=== PATIENT | female | born 1975 | race Caucasian/White ===

== ENCOUNTER → 2018-03-29 14:13 | Outpatient (CLI) | payer OTHER, SELFPAY | PROVIDERS: Family Provider Physician Assistant; PCP Physician Assistant; Visit Provider Orthopaedic Surgery | DX: M54.16 Radiculopathy, lumbar region (principal) | CPT/HCPCS: 72114 ==

== ENCOUNTER 2018-05-06 12:30 | Outpatient (RCR) | payer OTHER, SELFPAY ==
--- NOTE | 2018-05-06 13:25 | HP.PTREVAL ---
Luzmaria Soto, It has been my pleasure to treat MOISE GALLEGOS over the last 5 visits for LBP. Please see the progress note below for an update on the physical therapy plan of care! Subjective: No sig changes at this time. Objective/Function: LBP has remained relatively unchanged. Pt reports her R LE radiculopathy is also unchanged. Pt has not made significant improvements at this time Plan Plan: Hold Rx at this time, RTD. Pt to call with Plan after visit Goals Goal 1:: Decrease LBP x 50% to aid with sleep Goal Time Frame: 2-4 Weeks Goal Progress: Not Progressing Goal 2:: Increase L/S ext ROM x 1 grade to aid with decreasing pain Goal Time Frame: 2-4 Weeks Goal Progress: Not Progressing Goal 3:: Decrease the frequency and intensity of LE radiculopathy x 1 grade toa id with ambulation Goal Time Frame: 2-4 Weeks Goal Progress: Not Progressing Goal 4:: I with HEP Goal Time Frame: 2-4 Weeks Goal Progress: Progressing Anticipated Interventions Patient/Client Instruction: Educate patient on: Condition, Plan of Care For the Purpose of:: To improve self management Therapeutic Exercise to Include: Strength training, Endurance training, Body mechanics, Postural training, Dynamic Lumbar Stabilization, Luz Exercises For the Purpose of:: To decrease pain, To increase ROM, To improve muscle performance and motor function Please do not hesitate to contact me at [phone] by phone or if you have questions or concerns regarding this new plan of care! Sincerely, Darinel Valero, PT,
--- NOTE | 2018-05-06 13:37 | HP.PTREVAL_ITS ---
Luzmaria Soto, It has been my pleasure to treat MOISE GALLEGOS over the last 5 visits for LBP. Please see the progress note below for an update on the physical therapy plan of care! Subjective: No sig changes at this time. Objective/Function: LBP has remained relatively unchanged. Pt reports her R LE radiculopathy is also unchanged. Pt has not made significant improvements at this time Plan Plan: Hold Rx at this time, RTD. Pt to call with Plan after visit Goals Goal 1:: Decrease LBP x 50% to aid with sleep Goal Time Frame: 2-4 Weeks Goal Progress: Not Progressing Goal 2:: Increase L/S ext ROM x 1 grade to aid with decreasing pain Goal Time Frame: 2-4 Weeks Goal Progress: Not Progressing Goal 3:: Decrease the frequency and intensity of LE radiculopathy x 1 grade toa id with ambulation Goal Time Frame: 2-4 Weeks Goal Progress: Not Progressing Goal 4:: I with HEP Goal Time Frame: 2-4 Weeks Goal Progress: Progressing Anticipated Interventions Patient/Client Instruction: Educate patient on: Condition, Plan of Care For the Purpose of:: To improve self management Therapeutic Exercise to Include: Strength training, Endurance training, Body mechanics, Postural training, Dynamic Lumbar Stabilization, Luz Exercises For the Purpose of:: To decrease pain, To increase ROM, To improve muscle performance and motor function Please do not hesitate to contact me at [phone] by phone or Fax: if you have questions or concerns regarding this new plan of care! Sincerely, Darinel Valero, PT,
--- NOTE | 2018-05-06 13:38 | HP.PTEVAL_ITS ---
Patient's Visit Information MOISE GALLEGOS is a 42 year old F referred to Physical Therapy by Luzmaria Soto with a diagnosis of LBP. Date of Evaluation: 03/31/18 Physical Therapist: Darinel Valero, PT, - Visit Plan Frequency: 2x /Week Duration: 2 Weeks Plan: Hold Rx at this time, RTD. Pt to call with Plan after visit - Subjective Subjective: Pt reports she has had LBP for greater than one year. Pt notes she has had Xrays and MRI which revealed tendonitis and bulging discs. Pt reports she has had PT in the past, as well as injections from Dr. Wade, but no permanent improvements at this time. Pt reports sitting, cleaning her house, prolonged standing, and sleeping all increase pain. Pt reports she can barely stand up after lying down secondary to pain. Pt reports the pain is worst on her R side, and extends down her R LE to mid femur region. Pt reports changing positions and taking pain meds helps to decrease her pain. 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 Pt reports her LBP at rest is 7/10. 9/10 at worst (cleaning her house) - Pain LBP Pain Intensity (Out of 10): 7 Pain Intensity Range: 9 - Objective Neuro: B LE sensation is WNL to light touch. B pat tendon reflex= 2/3. MMT: B LE's are grossly 5/5 throughout. L/S ROM: Pt is mildly limited in all planes. Repeated movements: RFIS 10x3 increases pain. ASH 10x3 decreases pain. REIL decreased pain as well. - Goals Goal 1:: Decrease LBP x 50% to aid with sleep Goal Time Frame: 2-4 Weeks Goal 2:: Increase L/S ext ROM x 1 grade to aid with decreasing pain Goal Time Frame: 2-4 Weeks Goal 3:: Decrease the frequency and intensity of LE radiculopathy x 1 grade toa id with ambulation Goal Time Frame: 2-4 Weeks Goal 4:: I with HEP Goal Time Frame: 2-4 Weeks - Rehabilitation Potential Physical Therapy Diagnosis: LBP, decreased L/S ROM, and intermittent R LE radiculopathy secondary to L/S disc derrangement Rehabilitation Potential: Good - Anticipated Interventions Patient/Client Instruction: Educate patient on: Condition, Plan of Care For the Purpose of:: To improve self management Therapeutic Exercise to Include: Strength training, Endurance training, Body mechanics, Postural training, Dynamic Lumbar Stabilization, Luz Exercises For the Purpose of:: To decrease pain, To increase ROM, To improve muscle performance and motor function Thank you for the opportunity to evaluate your patient. For Medicare and Medicare HMO plans, please review the plan of care and approve it. It will need to be FAXED BACK to us at [phone] for Medicare purposes. Please let me know if there are questions or concerns regarding this plan of care. Physician Signature: Date:
--- NOTE | 2018-06-30 18:13 | HP.PT.NRP ---
HP - Discharge Summary (1) - Patient Information MOISE GALLEGOS was seen in my office for initial evaluation on 03/31/18. The following Plan of Care was established for this patient: Initial Frequency: 2x /Week Initial Duration: 2 Weeks - Anticipated Interventions Patient/Client Instruction: Educate patient on: Condition, Plan of Care For the Purpose of:: To improve self management Therapeutic Exercise to Include: Strength training, Endurance training, Body mechanics, Postural training, Dynamic Lumbar Stabilization, Luz Exercises For the Purpose of:: To decrease pain, To increase ROM, To improve muscle performance and motor function This patient was last seen in our office . Pertinent comments regarding their Physical therapy will appear below: Pt was treated for 5 PT visits through the date of 05/06/18 for her LBP. Pt reported no improvements at that time. I discussed with her that we would hold PT until after her Dr. visit. Pt has not returned through todays date, and is therefore discontinued at this time. At this point I will be discontinuing this patient from physical therapy. I would be happy to see this patient again in the future if found appropriate by the physician. Thank you! Darinel Valero, PT,
== END 2018-05-06 19:00 | disposition home or self-care (01) ==
LOC: PT 12:30
PROVIDERS: Family Provider Physician Assistant; PCP Physician Assistant; Visit Provider Orthopaedic Surgery
DX: M54.5 Low back pain (principal); M76.31 Iliotibial band syndrome, right leg
CPT/HCPCS: 97014; 97110; 97161; 97530; G0283

== ENCOUNTER → 2018-06-02 09:38 | Outpatient (CLI) | payer OTHER, SELFPAY ==
--- NOTE | 2018-06-02 09:39 | MRI_ITS ---
STUDY: MRI LUMBAR SPINE WITHOUT CONTRAST REASON FOR EXAM: Female, 42 years old. right lower back pain into R hip/leg 1yr +. TECHNIQUE: Standardized fat and water weighted pulse sequences were obtained in the sagittal and axial planes. COMPARISON: X-ray dated March 29, 2018 FINDINGS: T12-L1: Normal endplates. Normal disc height, hydration and morphology. Normal bilateral facet joints. Normal central canal and bilateral lateral recesses. Normal bilateral intervertebral neural foramina. Normal lumbar lordosis. There is no substantial scoliosis. Normal conus medullaris that terminates at the T12 L1-2: Normal endplates. Normal disc height, hydration and morphology. Normal bilateral facet joints. Normal central canal and bilateral lateral recesses. Normal bilateral intervertebral neural foramina. L2-3: Normal endplates. Normal disc height, hydration and morphology. Normal bilateral facet joints. Normal central canal and bilateral lateral recesses. Normal bilateral intervertebral neural foramina. L3-4: There is minimal disc space narrowing and endplate spondylosis. There is a mild disc bulge asymmetric to the left with left foraminal protrusion resulting in mild left foraminal stenosis. There is no significant central canal or right foraminal stenosis. L4-5: There is mild disc space narrowing and endplate spondylosis. There is bilateral pedicle edema, suggesting the stress reaction. There is a mild disc bulge and moderate facet arthropathy with mild central canal stenosis. There is mild bilateral foraminal stenosis. L5-S1: Normal endplates. Normal disc height, hydration and morphology. There is mild facet arthropathy. Normal central canal and bilateral lateral recesses. Normal bilateral intervertebral neural foramina. Normal visualized sacral ala. Normal visualized paraspinous soft tissue structures. MRI/Spine Lumbar (Routine) IMPRESSION: L4/L5: Moderate facet arthropathy. Pedicles edema, consistent with stress reaction. Electronically Signed: Crissy Man MD at 10:04 EDT Tel , Service support ,
== END ==
PROVIDERS: Family Provider Physician Assistant; PCP Physician Assistant; Referring Provider Orthopaedic Surgery; Visit Provider Orthopaedic Surgery
DX: M54.16 Radiculopathy, lumbar region (principal)
CPT/HCPCS: 72148

== ENCOUNTER → 2019-02-02 10:33 | Outpatient (CLI) | payer OTHER, SELFPAY ==
[2019-02-02 10:28] VITALS: BMI 34.1
--- NOTE | 2019-02-02 10:34 | RAD_ITS ---
HISTORY: CHRONIC BILAT HIP PAIN ADDITIONAL HISTORY: None provided. COMPARISON: None TECHNIQUE: AP and lateral views of each hip with AP pelvis Number of images including paperwork: 5 FINDINGS: BONES: No acute fracture. JOINTS: No subluxation. SOFT TISSUES: No distinct foreign body. Tubal ligation clips project over the pelvis. RAD/Hips B/L min 2 views w/ Pelvis IMPRESSION: No significant abnormality. at 2234 Reported and signed by: Leslie Roberson MD Electronically Signed: Leslie Roberson MD at 22:34 EDT Tel , Service support ,
== END ==
PROVIDERS: Family Provider Physician Assistant; PCP Physician Assistant; Referring Provider Physician Assistant; Visit Provider Physician Assistant
DX: M25.551 Pain in right hip (principal); M25.552 Pain in left hip
CPT/HCPCS: 73521

== ENCOUNTER → 2020-09-23 10:21 | Outpatient (CLI) | payer OTHER, SELFPAY ==
[2019-02-02 10:28] VITALS: BMI 34.1
--- NOTE | 2020-09-23 10:24 | RAD_ITS ---
HISTORY: CHRONIC NECK PAIN. NKI. COMPARISON: None FINDINGS: # of images incl. paperwork: 3 XR Spine Cervical 2 or 3 Views: 3 views of the cervical spine were obtained. All 7 cervical vertebral bodies are identified. No acute cervical spine fracture or subluxation. Normal cervical spine alignment. Odontoid is intact. No significant degenerative change. RAD/Cerv Spine 2 or 3 Views IMPRESSION: No acute cervical spine fracture or subluxation. at 0624 Reported and signed by: Binh Hill MD Electronically Signed: Binh Hill MD at 6:23 EST Tel , Service support ,
--- NOTE | 2020-09-23 10:35 | RAD_ITS ---
STUDY: X-RAY - LEFT SHOULDER REASON FOR EXAM: Female, 44 years old. CHRONIC LEFT SHOULDER PAIN. NKI. TECHNIQUE: 4 view(s) of the shoulder. COMPARISON: None. FINDINGS: Normal glenohumeral articulation. Normal acromioclavicular joint. Normal acromion. Normal humeral head and visualized proximal humerus. The soft tissue structures are unremarkable. Normal visualized pulmonary apex. RAD/Shoulder min 2 Views IMPRESSION: Normal x-ray examination of the shoulder. Electronically Signed: Ridge Menon MD at 19:42 EST , Service support ,
== END ==
LOC: RAD 10:23
PROVIDERS: PCP Physician Assistant; Referring Provider Anesthesiology Pain Medicine; Visit Provider Anesthesiology Pain Medicine
DX: M54.2 Cervicalgia (principal); M25.512 Pain in left shoulder
CPT/HCPCS: 72040; 73030

== ENCOUNTER → 2020-10-08 16:08 | Outpatient (CLI) | payer OTHER, SELFPAY ==
[2019-02-02 10:28] VITALS: BMI 34.1
--- NOTE | 2020-10-08 16:45 | MRI_ITS ---
STUDY: MRI CERVICAL SPINE WITHOUT CONTRAST REASON FOR EXAM: Female, 44 years old. Neck and arm pain TECHNIQUE: Standardized fat and water weighted pulse sequences were obtained in the sagittal and axial planes. COMPARISON: Cervical spine radiograph 09/19/2020 FINDINGS: Normal foramen magnum and brainstem-cervical cord junction. Normal craniovertebral junction. Normal anterior atlantoaxial articulation. Normal odontoid process. Normal cervical lordosis. Normal vertebral bodies and posterior osseous elements. C2-3: Normal endplates. Normal disc height, signal and morphology. Normal central canal and intervertebral neural foramina. C3-4: Normal endplates. Normal disc height, signal and morphology. Normal central canal and intervertebral neural foramina. C4-5: Normal endplates. Normal disc height, signal and morphology. Normal central canal and intervertebral neural foramina. C5-6: Normal endplates. Normal disc height, signal and morphology. Normal central canal and intervertebral neural foramina. Small broad-based posterior disc marginal osteophyte encroaches upon the cord. C6-7: Normal endplates. Normal disc height, signal and morphology. Normal central canal and intervertebral neural foramina. Small broad-based posterior disc marginal osteophyte. C7-T1: Normal endplates. Normal disc height, signal and morphology. Normal central canal and intervertebral neural foramina. Normal cervical cord. Normal visualized soft tissue structures. MRI/Spine Cervical (Routine) IMPRESSION: Disc marginal osteophytes at C5-6 and C6-7 as above. No significant neural foraminal narrowing. Electronically Signed: Melo Faustin MD at 17:20 EST , Service support ,
== END ==
LOC: MRI 16:11
PROVIDERS: PCP Physician Assistant; Referring Provider Anesthesiology Pain Medicine; Visit Provider Anesthesiology Pain Medicine
DX: M54.2 Cervicalgia (principal); M79.603 Pain in arm, unspecified
CPT/HCPCS: 72141

== ENCOUNTER → 2023-03-23 | Outpatient (CLI) | payer OTHER, SELFPAY ==
[2023-03-23 11:50] LABS: International Normalized Ratio 0.9; Prothrombin Time (Protime)PT. 12.5 SECONDS (11.7-14.9)
[2023-03-23 11:59] LABS: Vitamin B12 560 pg/mL (211-911)
[2023-03-23 12:06] LABS: Erythrocyte Sedimentation Rate 10 mm/hr (0-30)
[2023-03-23 12:07] LABS: Absolute Lymphocyte Count 2.08 X10^3/uL (0.83-4.51); Absolute Neutrophil Count 4.7 X10^3/uL (2.0-7.7); Basophil# 0.04 X10^3/uL; Basophil% 0.5 % (0-1); Eosinophil# 0.51 X10^3/uL; Eosinophils% 6.5 % (0-5); Hematocrit 40.4 % (37-47); Hemoglobin 12.7 g/dL (12.0-15.0); Lymphocyte # 2.08 X10^3/ul (0.83-4.51); Lymphocyte % 26.6 % (19-41); Mean Corp Hgb Conc 31.4 g/dL (32-36); Mean Corpuscular Hgb 29.7 pg (27.0-32.0); Mean Corpuscular Volume 94.4 fL (81-99); Mean Platelet Vol. 10.8 fl (6.2-12.0); Monocyte# 0.51 X10^3/uL; Monocyte% 6.5 % (0-10); NRBC Flagged by Analyzer 0 % (0-5); Neutrophil # 4.66 X10^3/uL (2.7-7.7); Neutrophil % 59.5 % (47-70); Platelet Count 251 K/mm3 (150-450); RBC Distribution Width CV 13.2 % (11.6-14.6); RBC Distribution Width SD 45.1 fl (35.1-43.9); Red Blood Count 4.28 M/mm3 (4.2-5.4); White Blood Count 7.8 K/mm3 (4.4-11.0)
[2023-03-23 12:42] LABS: ALB/GLOB Ratio 0.8 RATIO (0.9-2.4); AST(SGOT) 16 U/L (15-37); Alanine Aminotransfer ALT/SGPT 24 U/L (13-56); Albumin, Serum 3.6 g/dL (3.2-5.0); Alkaline Phosphatase 95 U/L (45-117); Amylase 41 U/L (25-115); Anion Gap 4 (5-15); BUN 14 mg/dL (7-18); BUN/Creat Ratio 16.6 RATIO (10-20); Calcium,Total 9.1 mg/dL (8.5-10.1); Chloride 107 mmol/L (98-107); Creatinine, Serum 0.84 mg/dL (0.55-1.02); EST Glomerular Filtration Rate 77 mL/min (>60); Est Glom Filt Rate - Afr Amer 94 mL/min (>60); Globulin 4.3 g/dL (2.2-4.2); Glucose 92 mg/dL (74-106); Lipase 35 U/L (13-75); Potassium 3.8 mmol/L (3.5-5.1); Protein, Total 7.9 g/dL (6.4-8.2); Sodium Level 138 mmol/L (136-145)
[2023-03-24 14:10] LABS: Anti-Centromere B Ab <0.2 AI (0.0-0.9); Anti-Chromatin <0.2 AI (0.0-0.9); Anti-Jo <0.2 AI (0.0-0.9); Anti-Scleroderma-70 AB <0.2 AI (0.0-0.9); Anti-dsDNA Ab <1 IU/mL (0-9); RNP Ab 0.6 AI (0.0-0.9); SJOGREN'S Anti-SS-A test 0.2 AI (0.0-0.9); SJOGREN'S Anti-SS-B test < 0.2 AI (0.0-0.9); Smith Ab <0.2 AI (0.0-0.9); Vitamin D 1,25-Dihydroxy 45.8 pg/mL (24.8-81.5)
[2023-03-26 09:08] LABS: Albumin 3.6 g/dL (2.9-4.4); Alpha-1-Globulins 0.3 g/dL (0.0-0.4); Alpha-2-Globulins 0.7 g/dL (0.4-1.0); Cytoplasmic Ab (C-ANCA) <1:20 titer (Neg:<1:20); Endomysial Antibody IgA Negative (Negative); Gamma Globulin 1.6 g/dL (0.4-1.8); HEPATITIS B SURFACE AG Negative (Negative); Hep C Antibodies Non Reactive (Non Reactive); Hepatitis A IgM Antibody Negative (Negative); Hepatitis B Core AB IgM Negative (Negative); Immunoglobulin A 236 mg/dL (87-352); Immunoglobulin E 28 IU/mL (6-495); Immunoglobulin G 1440 mg/dL (586-1602); Immunoglobulin M 146 mg/dL (26-217); PROEL- TOTAL PROTEIN 7.2 g/dL (6.0-8.5); Perinuclear Ab (P-ANCA) <1:20 titer (Neg:<1:20); t-Transglutaminase IgA <2 U/mL (0-3)
== END | disposition home or self-care (01) ==
LOC: LAB 10:57
PROVIDERS: PCP Physician Assistant; Referring Provider Internal Medicine Gastroenterology; Visit Provider Internal Medicine Gastroenterology
DX: Z12.11 Encounter for screening for malignant neoplasm of colon (principal)
CPT/HCPCS: 36415; 80053; 80074; 82150; 82607; 82652; 82746; 82784; 82785; 83516; 83690; 84165; 85025; 85610; 85652; 86140; 86225; 86235; 86255; 86256; 86334

== ENCOUNTER 2023-04-22 07:24 | Day surgery (SDC) | payer OTHER, SELFPAY ==
[2023-04-22 07:54] VITALS: BP 106/66; PULSE 79; RESP 18; TEMP 36.6; O2SAT 99; BMI 30.4
[2023-04-22] MEDS: Lactated Ringers 1,000 ML 15 ML IV (07:54)
--- NOTE | 2023-04-22 08:30 | EGD_PTH ---
PATIENT: MOISE GALLEGOS LOC: EN U#:[id number] AGE/SX: 47/F ROOM: RE04/22/[address]: Dr. Matt Julian DO : 1975 BED: DIS: 04/22/2023 SPEC #: [id number] RECD: 04/22/23 10:38 STATUS: ANTONIO CHRISTINE #: [id number] MELLY: 04/22/23 08:[address]: Matt Julian DEPT: SURGICAL PATHOLOGY RECD BY: Umm Gaines ENTERED: 04/22/23 11:50 SP TYPE: EGD BIOPSY OT DR: AGUEDA Gallagher Tissues: A - Duodenum, NOS B - Esophagus, NOS Procedures: Special Stain Group II Surgery Specimen Level IV Alcian Blue/PAS (control) HEADER OPERATION: Colonoscopy, EGD, biopsy PRE-OP DIAGNOSIS: Screening, abdominal pain, constipation TISSUE SUBMITTED: A - Duodenal biopsy, B - Distal esophagus biopsy MICROSCOPIC DIAGNOSIS A. Duodenal biopsy: Fragments of duodenal mucosa with congestion, mild acute and chronic inflammation. B. Distal esophagus, biopsy: Fragments of gastroesophageal mucosa with chronic inflammation and changes consistent with gastroesophageal reflux disease. Intestinal metaplasia (goblet cell metaplasia) not identified. See comment. DARI:ashley 04/23/2023 COMMENT B. Alcian blue/PAS stain with matched control is used in the evaluation of the specimen. MICROSCOPIC DESCRIPTION Slides are reviewed. GROSS DESCRIPTION A - Received in fixative is one container labeled with the patient's name and designated duodenal biopsy. The specimen consists of two irregular fragments of light figueroa soft tissue that in aggregate measure 0.5 x 0.2 x 0.1 cm. The specimen is totally submitted in one cassette. B - Received in fixative is one container labeled with the patient's name and designated distal esophagus biopsy. The specimen consists of two irregular fragments of light figueroa soft tissue that in aggregate measure 0.6 x 0.3 x 0.1 cm. The specimen is totally submitted in one cassette. / DARI:ashley 04/22/2023 TC:3 CPT: 35091 x2, [id number]
--- NOTE | 2023-04-22 08:40 | PCM.HP.BLA ---
History and Physical Date of Admission: 04/22/23 Chief Complaint: constipation/ nausea Details: MOISE GALLEGOS, is a 47 F who presents to the office today for Referral requested 03.15.23? ROS Const Constitutional: Positive for fatigue; No anorexia, body ache, chills, excessive sweating, fever(s), frequent falls, headache(s), decreased energy, malaise, night sweats, snoring, weakness, weight change, sleep problems, abnormal sleep pattern, change in appetite or other Eyes Eyes: No visual disturbances ENT ENT: Positive for difficulty swallowing; No abnormal hearing, headache(s) or neck pain Resp Respiratory: No snoring Cardio Cardiology: No leg pain with exertion or excessive sweating Gastro GI: Positive for abdominal pain, bloating, constipation, heartburn, difficulty swallowing and nausea/dyspepsia; No belching, change in bowel habits, change in stool character, coffee ground emesis, cramping, diarrhea, feeling full early, excessive flatus, incontinent of stools, Vomiting blood/hematemesis, Blood in stool, loose stools, Black,tarry stools, pain with swallowing, vomiting or other Musc Musculoskeletal: Positive for back pain, muscle cramps and stiffness; No abnormal gait, joint pain, deformity, joint swelling, limited range of motion, loss of height, muscle weakness, decreased muscle mass, myalgias, neck pain, numbness, radiating pain into limb, tingling, Arthritis, sciatica, restless legs, leg pain at night, leg pain with exertion or other Skin Skin: No acne, hair loss in leg, change in hair, nail changes, boil, change in skin color, dry skin, redness, excessive hair growth, yellowing of the eye, lesions, itchy eyes, rash, skin pain, skin ulcer, sores, skin swelling, wounds or other Neuro Neurology: No abnormal gait, abnormal hearing, abnormal movements, abnormal speech, behavioral changes, confusion, unsteady gait/balance, dizziness, weakness, frequent falls, headache(s), lack of coordination, loss of vision, memory loss, numbness, tingling, visual disturbances, restless legs, fainting, tremor(s), Increased tone in limbs, paralysis, seizures or other Psych Psychiatric: No abnormal sleep pattern, No lack of enjoyment, Positive for anxiety, No behavioral changes, No change in appetite, No confusion, Positive for depression, No difficulty concentrating, No hopelessness, No irritability, No memory loss, No mood swings, No panic attacks, No paranoia, No Thoughts of harming yourself/Others, No hallucinations, No Behavioral Problems, No Compulsive Behavior, No hyperactivity, No inattentiveness, No obsessions/compulsions, No Temper Tantrums, No suicidal ideation and No other Endo Endocrine: Positive for fatigue; No excessive sweating or weight change Aller/Imm Allergy/Immunologic: No itchy eyes Azam/Lymp Hematologic/Lymphatic: No easy bleeding, easy bruising, enlarged lymph nodes or other Exam Const General: cooperative and comfortable Nutritional Appearance: average body habitus and well nourished HENMT Head: normal to inspection Ears: hearing grossly normal bilaterally Nose: external nose normal Face and sinus: normal facial exam Mouth: oral mucosae normal Throat: posterior oropharynx normal Eyes General: appearance normal, both eyes and all related structures Neck Neck: normal visual inspection Chest Chest palpation & inspection: normal inspection of the chest and normal palpation of entire chest wall Resp Effort & Inspection: normal respiratory effort Auscultation: Bilateral: Clear to Auscultation Cardio Palpation: normal PMI Rate: regular rate Rhythm: regular rhythm GI Inspection: normal to inspection Auscultation: normal bowel sounds Percussion: normal to percussion Palpation: no hepatosplenomegaly Skin General: no rashes or lesions noted Neuro General: patient alert Extrem General: normal to inspection Psych Affect: normal affect Quality Reporting Tobacco Screening ([facility] [address]) Smoking Status: Former smoker Assessment and Plan Assessment and Plan (1) Screening for malignant neoplasm of colon: Status: Acute Plan: She should undergo a screening colonoscopy because she is 47 years of age. She was explained alternatives, risk, benefits including outstanding bleeding, infection, sepsis, perforation, need for emergent surgery and . She will have an ASA of 2. (2) Abdominal pain: Status: Acute Qualifiers: Abdominal location: epigastric Qualified Code(s): R10.13 - Epigastric pain Plan: The differential diagnosis for abdominal pain does include NSAID induced enteropathy, NSAID induced gastritis, H. pylori associated disease, gastroparesis, bile induced gastritis or bile induced reflux secondary to previous cholecystectomy. She will undergo an upper endoscopy to evaluate upper GI tract. We will also perform biochemical testing on her include she does have fatigue, weakness, muscle aches and arthralgia. Differential diagnosis for that does include chronic fatigue syndrome, IBS, fibromyalgia. Depending on the work-up she may need referral to rheumatology. I did tell her to stop taking any Motrin and meloxicam. (3) Constipation: Status: Acute Qualifiers: Constipation type: chronic idiopathic constipation Qualified Code(s): K59.04 - Chronic idiopathic constipation Plan: It does sound as if her constipation is more chronic idiopathic constipation secondary to slow transit constipation. She does have a bowel movement with the use of laxatives. She also has a very poor diet and daily that she works third shift she tends to eat to stay awake. We will evaluate her lower GI tract for diverticular disease, ischemic disease, stricturing disease and neoplastic or preneoplastic disease. Recommended for her to take Fiber Choice 1 to 2 chewable tablets a day for Orders: Orders ANCA Today Z12.11 - Encounter for screening for malignant neoplasm of colon Celiac Disease Profile Today Z12.11 - Encounter for screening for malignant neoplasm of colon CBC W/Diff, Automated Today Z12.11 - Encounter for screening for malignant neoplasm of colon CRP Today Z12.11 - Encounter for screening for malignant neoplasm of colon Erythrocyte Sed Rate Today Z12.11 - Encounter for screening for malignant neoplasm of colon Amylase Today Z12.11 - Encounter for screening for malignant neoplasm of colon Lipase Today Z12.11 - Encounter for screening for malignant neoplasm of colon BRIAN + Protein Elect, Serum Today Z12.11 - Encounter for screening for malignant neoplasm of colon Immunoglobulins G/A/M/E Today Z12.11 - Encounter for screening for malignant neoplasm of colon SOPHIE Comprehensive Panel Today Z12.11 - Encounter for screening for malignant neoplasm of colon Comprehensive Metabolic Profil Today Z12.11 - Encounter for screening for malignant neoplasm of colon Hepatitis Panel Acute Today Z12.11 - Encounter for screening for malignant neoplasm of colon Prothrombin Time w/INR Today Z12.11 - Encounter for screening for malignant neoplasm of colon Vitamin B12 Today Z12.11 - Encounter for screening for malignant neoplasm of colon Folates, (Folic Acid) Today Z12.11 - Encounter for screening for malignant neoplasm of colon Vitamin D 1,25-Dihydroxy Today Z12.11 - Encounter for screening for malignant neoplasm of colon I have examined the patient and the H&P has been reviewed. There are no clinical changes since date of exam.
[2023-04-22 09:10] VITALS: BP 106/66; BP 93/66; PULSE 65; RESP 16; TEMP 36.3; O2SAT 95
--- NOTE | 2023-04-22 09:13 | OP.CCLET_ITS ---
04/22/2023 Jessie Harrington Re : Upper GI endoscopy procedure for Suleiman Harrington This procedure was performed on April. My impressions and recommendations are as follows: Impressions : - Z-line irregular, 38 cm from the incisors. Biopsied. - No gross lesions in the entire stomach. - Chronic duodenitis. Biopsied. Recommendations : - Discharge patient to home. - Resume previous diet. - Continue present medications. - Await pathology results. My findings are described in the full procedure note, which is enclosed. If I can be of further assistance, please feel free to contact me at . Sincerely, Matt Julian, 04/22/2023 9:13:30 AM This report has been signed electronically.
--- NOTE | 2023-04-22 09:13 | OP.EGD_ITS ---
Patient Name: Suleiman Sanhcez Procedure Date: 04/22/2023 8:40 AM Date of : 1975 Age: 47 Procedure: Upper GI endoscopy Indications: Functional Dyspepsia, Heartburn Providers: Matt Julian DO Medicines: Monitored Anesthesia Care Patient Profile: This is a 47 year old female. Refer to note in patient chart for documentation of history and physical. Patient has symptoms. Complications: No immediate complications. Procedure: Pre-Anesthesia Assessment: - Prior to the procedure, a History and Physical was performed, and patient medications and allergies were reviewed. The risks and benefits of the procedure and the sedation options and risks were discussed with the patient. All questions were answered and informed consent was obtained. Patient identification and proposed procedure were verified by the physician in the pre-procedure area. Mental Status Examination: alert and oriented. CV Examination: normal. Prophylactic Antibiotics: The patient does not require prophylactic antibiotics. Prior Anticoagulants: The patient has taken no anticoagulant or antiplatelet agents. ASA Grade Assessment: II - A patient with mild systemic disease. After reviewing the risks and benefits, the patient was deemed in satisfactory condition to undergo the procedure. The anesthesia plan was to use monitored anesthesia care (MAC). Immediately prior to administration of medications, the patient was re-assessed for adequacy to receive sedatives. The heart rate, respiratory rate, oxygen saturations, blood pressure, adequacy of pulmonary ventilation, and response to care were monitored throughout the procedure. The physical status of the patient was re-assessed after the procedure. After obtaining informed consent, the endoscope was passed under direct vision. Throughout the procedure, the patient's blood pressure, pulse, and oxygen saturations were monitored continuously. The pediatric colonoscope was introduced through the mouth, and advanced to the second part of duodenum. The upper GI endoscopy was accomplished without difficulty. The patient tolerated the procedure well. Scope In: 8:47:53 AM Scope Out: 8:49:37 AM Total Procedure Duration Time 0 hours 1 minute 44 seconds Findings: The Z-line was irregular and was found 38 cm from the incisors. Biopsies were taken with a cold forceps for histology. Verification of patient identification for the specimen was done. Estimated blood loss was minimal. No gross lesions were noted in the entire examined stomach. Patchy mild inflammation characterized by congestion (edema) was found in the second portion of the duodenum and in the third portion of the duodenum. Biopsies were taken with a cold forceps for histology. Verification of patient identification for the specimen was done. Estimated blood loss was minimal. Impression: - Z-line irregular, 38 cm from the incisors. Biopsied. - No gross lesions in the entire stomach. - Chronic duodenitis. Biopsied. Recommendation: - Discharge patient to home. - Resume previous diet. - Continue present medications. - Await pathology results. Procedure Code(s): --- Professional --- 33778, Esophagogastroduodenoscopy, flexible, transoral; with biopsy, single or multiple CPT copyright 2021 [employer]. All rights reserved. The codes documented in this report are preliminary and upon mold setter review may be revised to meet current compliance requirements. Matt Julian DO 04/22/2023 9:13:30 AM This report has been signed electronically. Number of Addenda: 0 Note Initiated On: 04/22/2023 8:40 AM
[2023-04-22 09:15] VITALS: BP 106/66; BP 86/55; PULSE 62; RESP 16; O2SAT 95
--- NOTE | 2023-04-22 09:16 | OP.COLON_ITS ---
Patient Name: Suleiman Sanchez Procedure Date: 04/22/2023 8:51 AM Date of : 1975 Age: 47 Procedure: Colonoscopy Indications: Screening for colorectal malignant neoplasm Providers: Matt Julian DO Medicines: Monitored Anesthesia Care Patient Profile: This is a 47 year old female. Refer to note in patient chart for documentation of history and physical. Patient has symptoms. Last Colonoscopy: none. The patient's first colonoscopy is today. Complications: No immediate complications. Procedure: Pre-Anesthesia Assessment: - Prior to the procedure, a History and Physical was performed, and patient medications and allergies were reviewed. The risks and benefits of the procedure and the sedation options and risks were discussed with the patient. All questions were answered and informed consent was obtained. Patient identification and proposed procedure were verified by the physician in the pre-procedure area. Mental Status Examination: alert and oriented. CV Examination: normal. Prophylactic Antibiotics: The patient does not require prophylactic antibiotics. Prior Anticoagulants: The patient has taken no anticoagulant or antiplatelet agents. ASA Grade Assessment: II - A patient with mild systemic disease. After reviewing the risks and benefits, the patient was deemed in satisfactory condition to undergo the procedure. The anesthesia plan was to use monitored anesthesia care (MAC). Immediately prior to administration of medications, the patient was re-assessed for adequacy to receive sedatives. The heart rate, respiratory rate, oxygen saturations, blood pressure, adequacy of pulmonary ventilation, and response to care were monitored throughout the procedure. The physical status of the patient was re-assessed after the procedure. After I obtained informed consent, the scope was passed under direct vision. Throughout the procedure, the patient's blood pressure, pulse, and oxygen saturations were monitored continuously. The pediatric colonoscope was introduced through the anus and advanced to the cecum, identified by appendiceal orifice and ileocecal valve. The colonoscopy was performed without difficulty. The patient tolerated the procedure well. The quality of the bowel preparation was adequate. The ileocecal valve, appendiceal orifice, and rectum were photographed. Scope In: 8:53:17 AM Scope Withdrawal Time 0 hours 7 minutes 41 seconds Scope Out: 9:06:00 AM Total Procedure Duration Time 0 hours 12 minutes 43 seconds Findings: The perianal and digital rectal examinations were normal. A few small-mouthed diverticula were found in the sigmoid colon. The exam was otherwise without abnormality on direct and retroflexion views. Impression: - Diverticulosis in the sigmoid colon. - The examination was otherwise normal on direct and retroflexion views. - No specimens collected. Recommendation: - Discharge patient to home. - Resume previous diet. - Continue present medications. - Repeat colonoscopy in 10 years for screening purposes. Procedure Code(s): --- Professional --- G0121, Colorectal cancer screening; colonoscopy on individual not meeting criteria for high risk CPT copyright 2021 [employer]. All rights reserved. The codes documented in this report are preliminary and upon political science instructor review may be revised to meet current compliance requirements. Matt Julian DO 04/22/2023 9:15:21 AM This report has been signed electronically. Number of Addenda: 0 Note Initiated On: 04/22/2023 8:51 AM
--- NOTE | 2023-04-22 09:16 | OP.CCLET_ITS ---
04/22/2023 Jessie Harrington Re : Colonoscopy procedure for Suleiman Harrington This procedure was performed on April. My impressions and recommendations are as follows: Impressions : - Diverticulosis in the sigmoid colon. - The examination was otherwise normal on direct and retroflexion views. - No specimens collected. Recommendations : - Discharge patient to home. - Resume previous diet. - Continue present medications. - Repeat colonoscopy in 10 years for screening purposes. My findings are described in the full procedure note, which is enclosed. If I can be of further assistance, please feel free to contact me at . Sincerely, Matt Julian, 04/22/2023 9:15:21 AM This report has been signed electronically.
[2023-04-22 09:20] VITALS: BP 106/66; BP 89/54; PULSE 59; RESP 14; O2SAT 95
[2023-04-22 09:25] VITALS: BP 106/66; BP 92/59; PULSE 70; RESP 14; TEMP 36.7; O2SAT 95
[2023-04-22 09:35] VITALS: BP 106/66
== END 2023-04-22 10:00 | disposition home or self-care (01) ==
LOC: EN 07:25 → AC 07:27
PROVIDERS: PCP Physician Assistant; Referring Provider Physician Assistant; Visit Provider Internal Medicine Gastroenterology
PROC: 0DJD8ZZ Inspection of Lower Intestinal Tract, Via Natural or Artificial Opening Endoscopic (ICD-10-PCS; CPT 45378; principal; 2023-04-22 08:25)
DX: Z12.11 Encounter for screening for malignant neoplasm of colon (principal); K57.30 Diverticulosis of large intestine without perforation or abscess without bleeding; K63.89 Other specified diseases of intestine; K30 Functional dyspepsia; K29.80 Duodenitis without bleeding; K59.00 Constipation, unspecified; J45.909 Unspecified asthma, uncomplicated; K21.9 Gastro-esophageal reflux disease without esophagitis; F41.9 Anxiety disorder, unspecified; Z79.899 Other long term (current) drug therapy; Z87.891 Personal history of nicotine dependence
CPT/HCPCS: G0121; 43239; 88305; 88313; J7120; J2405